=== PATIENT | male | born 1995 | race Caucasian/White ===

== ENCOUNTER 2025-01-07 00:52 | Emergency (ER) | payer OTHER, SELFPAY ==
--- NOTE | 2025-01-07 00:55 | ED_ITS ---
HPI - Trauma General Chief Complaint: General Medical Stated Complaint: Exposure Time Seen by Provider: 01/07/25 00:54 History of Present Illness ED Provider: [email or web address] HPI narrative: 29 M s/p needle stick with 27 G hollow bore needle by me, inadvertenly during procedure. L thumb. Slight bleeding. Source patient: Related Data Allergies Allergy/AdvReac Type Severity Reaction Status Date / Time No Known Allergies Allergy Verified 01/07/25 01:14 PMF Social History Social History Advance Directives: No Advance Directives Information Provided: Yes Do you have a plan to hurt others: No Plan Physical Exam Vital Signs: Vital Signs: Last Vital Signs Temp 0 F L 01/07/25 04:41 Pulse 0 L 01/07/25 04:41 Resp 16 01/07/25 04:41 BP 000/00 L 01/07/25 04:41 Pulse Ox 0 L 01/07/25 04:41 BMI result Body Mass Index 29.0 Const: Other: Left thumb small puncture wound General: cooperative, healthy appearing and comfortable Medical Decision Making Medical Decision Making MDM Narrative: 29 M needle stick. Source patient tested: Local wound care. Testing. Lab Data Labs: Lab Results 01/07/25 Range/Units 01:04 Hepatitis A IgM Ab Nonreactive (Nonreactive) Hep Bs Antigen Negative (Negative) Hep Bs Antibody NONREACTIVE (Nonreactive) Hep B Core Total Ab Nonreactive (Nonreactive) Hepatitis C Ab (EIA) Nonreactive (Nonreactive) HIV 1&2 Ab/P24 Ag 4thGn Nonreactive (Nonreactive) Discharge Plan Discharge Clinical Impression: Needle exposure Patient Disposition: Home, Self-Care Interventions: ED Discharge Assessment Last Done: 01/07/25 04:41 Discharge Date/Time: 01/07/25 04:42 Print Language: [place]
[2025-01-07 01:12] VITALS: BMI 29.0
[2025-01-07 04:41] VITALS: BP 000/00; PULSE 0; RESP 16; TEMP -17.7; TEMP 0; O2SAT 0
[2025-01-07 08:19] LABS: HBS Num1 2.44 mIU/mL (0-7.99); HBc Num1 0.28 S/CO (0.00-0.79); HBsAGNum1 0.68 S/CO (0.00-0.99); HIV AB/AG Nonreactive (Nonreactive); HIV Num 1 0.07 S/CO (0.00-0.99); Hepatitis A Antibody IgM 0.19 Index (0-0.79); Hepatitis B Core Antibody Nonreactive (Nonreactive); Hepatitis B Surface Antigen Negative (Negative); ~HepC Num1 0.16 S/CO (0.00-0.79); ~Hepatitis A Antibody IgM Nonreactive (Nonreactive); ~Hepatitis B Surface Antibody NONREACTIVE (Nonreactive); ~Hepatitis C Antibody Nonreactive (Nonreactive)
== END 2025-01-07 04:42 | disposition home or self-care (01) ==
PROVIDERS: Emergency Provider Emergency Medicine
DX: Z20.828 Contact with and (suspected) exposure to other viral communicable diseases (principal); Z79.899 Other long term (current) drug therapy
CPT/HCPCS: 36415; 86704; 86706; 86709; 86803; 87340; 87389; 99282; 99283